=== PATIENT | female | born 2000 | race Caucasian/White ===

== ENCOUNTER 2022-06-03 23:03 | Emergency (ER) | payer OTHER ==
[2022-06-03 23:23] VITALS: BP 112/75; PULSE 102; RESP 18; TEMP 98.2; BMI 28.1
[2022-06-04] MEDS ORDERED: ACETAMINOPHEN 500 MG TABLET (FP) PO ONE (00:23)
[2022-06-04] MEDS ORDERED: ACETAMINOPHEN 500 MG TABLET (FP) ONE (00:57)
== END 2022-06-04 01:22 | disposition home or self-care (01) ==
LOC: JER 23:03
DX: S51.852A Open bite of left forearm, initial encounter (principal); S00.81XA Abrasion of other part of head, initial encounter; Y04.0XXA Assault by unarmed brawl or fight, initial encounter; Y92.9 Unspecified place or not applicable
CPT/HCPCS: 76801-TC; 99284-25

== ENCOUNTER 2022-12-26 20:55 | Inpatient (IN) | payer OTHER ==
[2022-12-26] MEDS: ELECTROLYTE-148 SOLN 1,000 ML IV SCH (21:15)
[2022-12-26 21:42] LABS: BASO % 0.5 % (0-2.0); EOS % 0.4 % (0-4.5); HEMATOCRIT 35.4 % (32.4-45.2); HEMOGLOBIN 11.3 GM/dL (10.7-15.3); LYMPH % 13.5 % (8-40); MCH 24.9 pg (25.7-33.7); MCHC 31.9 g/dl (32.0-36.0); MEAN CELL VOLUME 78.1 fl (80-96); MEAN PLT VOLUME 9.8 fl (7.5-11.1); MONO % 8.1 % (3.8-10.2); NEUT % 77.5 % (42.8-82.8); PLATELET COUNT 265 10^3/uL (134-434); RBC 4.54 M/mm3 (3.60-5.2); RDW 18.6 % (11.6-15.6); WHITE BLOOD COUNT 8.7 K/mm3 (4.0-10.0)
[2022-12-26 21:46] VITALS: BMI 34.9
[2022-12-26 21:53] LABS: INR 0.93 (0.83-1.09); PROTHROMBIN TIME (PATIENT) 10.8 SEC (9.7-13.0)
[2022-12-26 21:56] LABS: ACTIVATED PTT 26.4 SECONDS (25.2-36.5)
[2022-12-26 22:05] LABS: BLOOD UREA NITROGEN 9.8 mg/dL (7-18); CALCIUM 8.7 mg/dL (8.5-10.1)
[2022-12-26 22:08] LABS: CREATININE 0.5 mg/dL (0.55-1.3)
[2022-12-26] MEDS ORDERED: FENTANYL/BUPIVACAINE/NS/PF - PCEA - 50 ML DISP.SYRIN EP ONE (22:39)
[2022-12-26] MEDS ORDERED: NALOXONE HCL 0.4 MG/ML VIAL IVPUSH PRN (22:51)
[2022-12-26] MEDS ORDERED: FENTANYL/BUPIVACAINE/NS/PF - PCEA - 50 ML DISP.SYRIN EP SCH (23:00)
[2022-12-26] MEDS ORDERED: FENTANYL CITRATE/PF 50 MCG/ML VIAL ONE (23:02)
[2022-12-26 23:50] LABS: HIV INTERPRETATION NEGATIVE (NEGATIVE)
[2022-12-27] MEDS ORDERED: OXYTOCIN 30 UNITS in 0.9% NS 30 UNIT/500 ML INFUS.BAG IVPB SCH
[2022-12-27] MEDS ORDERED: OXYTOCIN 30 UNITS in 0.9% NS 30 UNIT/500 ML INFUS.BAG IVPB ONE (00:27)
[2022-12-27] MEDS: ELECTROLYTE-148 SOLN 1,000 ML IV SCH (01:00)
[2022-12-27] MEDS ORDERED: FENTANYL/BUPIVACAINE/NS/PF - PCEA - 50 ML DISP.SYRIN EP ONE ×2 (02:18→04:54)
[2022-12-27] MEDS ORDERED: OXYTOCIN 20 UNITS in 0.9% NS 20 UNIT/1,000 ML INFUS.BAG IV ONE (05:23)
[2022-12-27] MEDS ORDERED: ACETAMINOPHEN 325 MG TABLET (FP) PO PRN (07:21)
[2022-12-27] MEDS ORDERED: BENZOCAINE 20% 57 GM BOTTLE TP PRN (07:21)
[2022-12-27] MEDS ORDERED: WITCH HAZEL 50% (TUCKS) 40 PAD/JAR PAD TP PRN (07:21)
[2022-12-27] MEDS ORDERED: METHYLERGONOVINE MALEATE 0.2 MG/1 ML AMP IM PRN (07:21)
[2022-12-27] MEDS ORDERED: oxyCODONE HCL 5 MG TABLET PO PRN (07:21)
[2022-12-27] MEDS ORDERED: BISACODYL 10 MG SUPP.RECT RC PRN (07:21)
[2022-12-27] MEDS ORDERED: BENZOCAINE 28 GM HEMORRHOIDAL OINTMENT TP PRN (07:21)
[2022-12-27] MEDS ORDERED: OXYTOCIN 20 UNITS in 0.9% NS 20 UNIT/1,000 ML INFUS.BAG IV SCH (07:30)
[2022-12-27 07:49] LABS: CORD BASE EXCESS -2.3 mmol/L (0-2); CORD HCO3 22.7 mmHg (20-29); CORD pH 7.371 (7.14-7.44)
[2022-12-27 07:50] LABS: CORD BASE EXCESS -3.8 mmol/L (0-2); CORD HCO3 22.4 mmHg (20-29); CORD PCO2 44.5 mmHg (30-78); CORD pH 7.32 (7.14-7.44)
[2022-12-27] MEDS: IBUPROFEN 600 MG TABLET (FP) PO PRN ×2 (14:36→18:35)
[2022-12-27] MEDS ORDERED: ONDANSETRON *ODT* 4 MG TABLET SL ONE (14:45)
[2022-12-28 09:38] LABS: BASO % 0.8 % (0-2.0); EOS % 0.6 % (0-4.5); LYMPH % 18.4 % (8-40); MCH 26.4 pg (25.7-33.7); MCHC 33.3 g/dl (32.0-36.0); MEAN CELL VOLUME 79.3 fl (80-96); MEAN PLT VOLUME 9.5 fl (7.5-11.1); MONO % 8.7 % (3.8-10.2); NEUT % 71.5 % (42.8-82.8); PLATELET COUNT 219 10^3/uL (134-434); RBC 3.41 M/mm3 (3.60-5.2); RDW 18.8 % (11.6-15.6); WHITE BLOOD COUNT 7.6 K/mm3 (4.0-10.0)
[2022-12-28 21:33] VITALS: RESP 18
[2022-12-28] MEDS ORDERED: SENNOSIDES/DOCUSATE COMBO (SENNA PLUS) TABLET (UD) PO PRN (22:00)
[2022-12-29] MEDS: IBUPROFEN 600 MG TABLET (FP) PO PRN ×2 (01:24→07:06)
[2022-12-29 10:45] VITALS: BP 130/78; PULSE 98; TEMP 98.5
== END 2022-12-29 14:50 | disposition home or self-care (01) | DRG 560 ==
LOC: JLDR 20:55 → J3W 12-27 10:00
PROVIDERS: ADMIT Obstetrics & Gynecology; ATTEND Obstetrics & Gynecology
PROC: 10E0XZZ Delivery of Products of Conception, External Approach (ICD-10-PCS; principal; 2022-12-26)
PROC: 0W8NXZZ Division of Female Perineum, External Approach (ICD-10-PCS; 2022-12-26)
DX: O69.81X0 Labor and delivery complicated by cord around neck, without compression, not applicable or unspecified (principal); Z3A.39 39 weeks gestation of pregnancy; Z37.0 Single live birth
CPT/HCPCS: 36415; 36600; 59409; 80048; 82803; 85025; 85610; 85730; 86780; 86850; 86900; 86901; 87389; C9803-CS; Q0162; U0003; U0005

== ENCOUNTER 2024-06-01 00:10 | Emergency (ER) | payer OTHER ==
[2024-06-01 00:21] VITALS: BP 124/92; PULSE 86; RESP 18; TEMP 97.7; BMI 32.6
[2024-06-01] MEDS ORDERED: ACETAMINOPHEN INJECTION 100 ML IVPB ONE (00:46)
[2024-06-01] MEDS ORDERED: FAMOTIDINE 20 MG/50 ML IVPB 20 MG/50 ML MG IVPB ONE (00:46)
[2024-06-01] MEDS: ACETAMINOPHEN 1000 MG/100 ML BAG IVPB ONE (00:49)
[2024-06-01] MEDS: SODIUM CHLORIDE 1,000 ML IV STA (00:49)
[2024-06-01] MEDS: FAMOTIDINE 20 MG/50 ML IVPB 20 MG/50 ML MG IVPB ONE (01:08)
[2024-06-01 01:19] LABS: BASO % 0.4 % (0-2.0); EOS % 0.5 % (0-4.5); HEMATOCRIT 41.6 % (32.4-45.2); HEMOGLOBIN 14.1 GM/dL (10.7-15.3); LYMPH % 17.7 % (8-40); MCH 27.8 pg (25.7-33.7); MCHC 33.8 g/dl (32.0-36.0); MEAN CELL VOLUME 82.1 fl (80-96); MEAN PLT VOLUME 9.5 fl (7.5-11.1); MONO % 8.2 % (3.8-10.2); NEUT % 73.2 % (42.8-82.8); PLATELET COUNT 272 10^3/uL (134-434); RBC 5.06 M/mm3 (3.60-5.2); RDW 14.3 % (11.6-15.6); WHITE BLOOD COUNT 8.8 K/mm3 (4.0-10.0)
[2024-06-01 01:28] LABS: EPI CELLS 11 /uL (0-25.1); HYALINE CASTS 0 /uL (0-3.1); PH,URINE 5.5 (5.0-8.0); URINE APPEARANCE CLEAR; URINE BACTERIA 200 /uL (0-1359); URINE BILIRUBIN NEGATIVE (NEGATIVE); URINE COLOR YELLOW; URINE GLUCOSE (UA) NEGATIVE (NEGATIVE); URINE KETONE NEGATIVE (NEGATIVE); URINE LEUK ESTERASE NEGATIVE (NEGATIVE); URINE NITRITE NEGATIVE (NEGATIVE); URINE PROTEIN NEGATIVE (NEGATIVE); URINE UROBILINOGEN 0.2 mg/dL (0.2-1.0); URINE WBC 17 /uL (0-25.8)
[2024-06-01 02:02] LABS: CALCIUM 9.6 mg/dL (8.5-10.1)
[2024-06-01 02:03] LABS: ALBUMIN 4.5 g/dl (3.4-5.0); BLOOD UREA NITROGEN 11.7 mg/dL (7-18)
[2024-06-01 02:06] LABS: CREATININE 0.8 mg/dL (0.55-1.3)
[2024-06-01 02:07] LABS: BILIRUBIN,TOTAL 0.2 mg/dL (0.2-1)
[2024-06-01 05:15] LABS: HIV INTERPRETATION NEGATIVE (NEGATIVE)
[2024-06-01 06:55] LABS: URINE RBC 16.8 /uL (0-23.9)
== END 2024-06-01 02:34 | disposition home or self-care (01) ==
LOC: FER 00:10
PROC: 3E033GC Introduction of Other Therapeutic Substance into Peripheral Vein, Percutaneous Approach (ICD-10-PCS; principal; 2024-06-01)
PROC: 3E033NZ Introduction of Analgesics, Hypnotics, Sedatives into Peripheral Vein, Percutaneous Approach (ICD-10-PCS; 2024-06-01)
DX: M54.41 Lumbago with sciatica, right side (principal); K29.00 Acute gastritis without bleeding; R10.13 Epigastric pain
CPT/HCPCS: 36415; 80053; 81003; 81025; 85025; 86803; 87086; 87389; 99284-25; J0131